=== PATIENT | male | born 1955 | race Asian ===

== ENCOUNTER 2023-04-29 08:03 | Emergency (ER) | payer MEDICARE, OTHER ==
[~2023-04-29] VITALS: Ht 167.6 cm; Wt 61.4 kg
[~2023-04-29 08:03] MED LIST: AMOX1TAB15 PO; NOCURR
[2023-04-29 08:13] VITALS: TEMP 98.3
[2023-04-29] MEDS ORDERED: AMOX TR/POT CLAV 875 MG/125 MG TABLET PO ONE (08:30)
[2023-04-29] MEDS ORDERED: NEOMYCIN/POLYMYXIN B/HYDROCORT 10 ML OTIC SOLUTION AS ONE (08:30)
[2023-04-29] MEDS ORDERED: CORTSOL AS (08:31)
[2023-04-29] MEDS ORDERED: AMOX1TAB16 PO (08:31)
[2023-04-29 09:32] VITALS: BP 142/84; PULSE 86; RESP 16
== END 2023-04-29 09:47 | disposition home or self-care (01) ==
LOC: EMS 08:33
DX: H66.92 Otitis media, unspecified, left ear (principal); H60.92 Unspecified otitis externa, left ear
CPT/HCPCS: 99283